=== PATIENT | female | born 1935 | race Hispanic/Latino ===

== ENCOUNTER → 2017-12-27 | Day surgery (SDC) | payer MEDICARE ==
[2017-12-26 12:20] LABS: BASOPHILS % 0.2 % (0.0-1.0); EOSINOPHILS # (AUTO) 0.3 (0.0-0.4); EOSINOPHILS % 2.4 % (0.0-6.0); HEMATOCRIT 32.9 % (34.2-44.1); HEMOGLOBIN 10.4 g/dL (12.0-16.0); LYMPHOCYTES # (AUTO) 4.3 (1.0-3.2); LYMPHOCYTES % 40.5 % (18.0-39.1); MEAN CORPUSCULAR HEMOGLOBIN 27.8 pg (28-32); MEAN CORPUSCULAR HGB CONC 31.6 g/dL (31-35); MONOCYTES # (AUTO) 0.7 (0.2-0.8); MONOCYTES % 6.3 % (4.4-11.3); NEUTROPHILS # (AUTO) 5.4 (2.1-6.9); NEUTROPHILS % 50.3 % (38.7-80.0); PLATELET COUNT 202 x10e3/uL (140-360); RED BLOOD COUNT 3.74 x10e6/uL (3.6-5.1); RED CELL DISTRIBUTION WIDTH 17.2 % (11.7-14.4)
[2017-12-26 12:34] LABS: ANION GAP 12.5 mmol/L (8-16); BLOOD UREA NITROGEN 14 mg/dL (7-26); BUN/CREATININE RATIO 21 (6-25); CALCIUM 9.1 mg/dL (8.4-10.2); CARBON DIOXIDE 27 mmol/L (22-29); CHLORIDE 107 mmol/L (98-107); CREATININE, SERUM 0.67 mg/dL (0.57-1.11); EST GLOMERULAR FILTRATION RATE > 60 ML/MIN (60-); GLUCOSE 93 mg/dL (74-118); POTASSIUM 4.5 mmol/L (3.5-5.1); SODIUM 142 mmol/L (136-145)
--- NOTE | 2017-12-26 12:56 | Diagnostic Imaging Report ---
PROCEDURE: Frontal and lateral views of the chest. COMPARISON: Chest radiograph 11/07/2017 INDICATIONS: PRE OPERATIVE CHEST X-RAY FOR VENOUS ACCESS PORT FINDINGS: Lines/tubes: None. Lungs: The lungs are well inflated. Chronic appearing interstitial changes. There is no evidence of pneumonia or pulmonary edema. Pleura: There is no pleural effusion or pneumothorax. Heart and mediastinum: The heart and the mediastinum are normal. Bones: No acute bony abnormality. IMPRESSION: No acute cardiopulmonary disease. Dictated by: Drake Veras M.D. on 12/26/2017 at 13:06 Electronically approved by: Drake Veras M.D. on 12/26/2017 at 13:06
[~2017-12-27] MED LIST: AMLODIPINE BESYL5 MG PO; BUPIVACAINE HCL 0.5% INJ 30 ML VIAL INJ ONE; EPHEDRINE SULFATE INJ 50 MG/10 ML SYR ONE; FENTANYL CITRATE/PF 100MCG/2 ML INJ ONE; HEPARIN SOD (PORCINE) 5,000 UNIT/ML VIAL ONE; LIDOCAINE HCL 2% LOCAL INJ 5 ML SDV VIAL INJ ONE; LOSARTAN POTASS25 MG PO; LUMIGAN2.5 M1 OP; MORPHINE SULFATE 2 MG/ML SYR ONE; PHENYLEPHRINE HCL 1% 10 MG/ML VIAL ONE; PROPOFOL IV EMULSION 10 MG/ML 20 ML VIAL ONE; SEVOFLURANE INHAL SOLN 250 ML PEN BTL ONE; SODIUM CHLORIDE 0.9% 500ML 500 ML ONE
--- OUTSIDE RECORDS SUMMARY | 2017-12-27 06:36 | XMS REPORT ---
Author Author [facility] Address Unknown Phone Unavailable Care Team Providers [employer] Name Role Phone JAYDEN BREAUX Unavailable Unavailable Problems This patient has no known problems. Allergies, Adverse Reactions, Alerts This patient has no known allergies or adverse reactions. Medications This patient has no known medications. Results Test Description Test Time Test Comments Text Results Atomic Results Result Comments CHEST 2 VIEWS [place] [id number] [place], [place] [address] Patient Name: TWAN HAWLEY MR #: [id number] : 1935 Age/Sex: 82/F Req #: [id number] Adm Physician: Ordered by: JAYDEN BREAUX MD Report #: [id number] Location: OR Room/Bed: Procedure: [id number] DX/CHEST 2 VIEWS Exam Date: 12/26/17 Exam Time : 1230 REPORT STATUS: Signed PROCEDURE: Frontal and lateral views of the chest. COMPARISON: Chest radiograph 11/07/2017 INDICATIONS: PRE OPERATIVE CHEST X-RAY FOR VENOUS ACCESS PORT FINDINGS: Lines/ tubes: None. Lungs: The lungs are well inflated. Chronic appearing interstitial changes. There is no evidence of pneumonia or pulmonary edema. Pleura: There is no pleural effusion or pneumothorax. Heart and mediastinum: The heart and the mediastinum are normal. Bones: No acute bony abnormality. IMPRESSION: No acute cardiopulmonary disease. Dictated by: Drake Gannon M.D. on 12/26/2017 at 13:06 Electronically approved by: Drake Gannon M.D. on 12/26/2017 at 13:06 Dictated By: DRAKE GANNON MD 1306 Transcribed By: VIRAJ on 12/26/17 1306 COPY TO: JAYDEN BREAUX MD CHEST SINGLE (PORTABLE) [place] [address] Patient Name: TWAN HAWLEY MR #: [id number] : 1935 Age/Sex: 82/F Req #: [id number] Adm Physician: JAYDEN BREAUX MD Ordered by: JAYDEN BREAUX MD Report #: [id number] Location: ICU Room/Bed: [place] [address] Procedure: [id number] DX/CHEST SINGLE (PORTABLE) Exam Date: 11/07/17 Exam Time: 1620 REPORT STATUS: Signed PROCEDURE: A single AP view of the chest. COMPARISON: Chest radiograph/10/2017 INDICATIONS: FEVER TODAY FINDINGS: Lines/tubes: Right internal jugular central venous catheter tip overlies the lower superior vena cava. NG tube tip projects over the gastric body, and side hole overlies the GE junction. Lungs: Stable biapical pleuroparenchymal scarring, left greater than right. Mild retrocardiac atelectasis. There is no evidence of pneumonia or pulmonary edema. Pleura: There is no pleural effusion or pneumothorax. Heart and mediastinum: The heart and the mediastinum are unremarkable. Bones: No acute bony abnormality. Upper abdomen: Decreased small amount of free air under the diaphragm, likely post-operative given the midline skin mona suggesting laparotomy. IMPRESSION: 1. Lines and tubes as above. 2. No acute cardiopulmonary disease. 3. Decreased likely post-operative pneumoperitoneum. Dictated by: Drake Gannon M.D. on 2016 at 16:59 Electronically approved by: Drake Gannon M.D. on 2016 at 16:59 Dictated By: DRAKE GANNON MD 58 Transcribed By: VIRAJ on 11/07/171658 COPY TO: JAYDEN BREAUX MD CHEST SINGLE (PORTABLE) [place] [address] Patient Name: TWAN HAWLEY MR #: [id number] : 1935 Age/Sex: 82/F Req #: [id number] Adm Physician: Ordered by: DENISE TEMPLE MD Report #: [id number] Location: OR Room/Bed: Procedure: [id number] DX/CHEST SINGLE (PORTABLE) Exam Date: 11/05/17 Exam Time: 1510 REPORT STATUS: Signed PROCEDURE: A single AP view of the chest. COMPARISON: 11/04/17 INDICATIONS: CENTRAL LINE PLACEMENT AND RULE OUT PNEUMOTHORAX FINDINGS: Lines/ tubes: Right internal jugular central line in place with tip overlying inferior SVC. Nasogastric tube in place with side port slightly above the gastroesophageal junction. Lungs: The lungs are well inflated. Mild central vascular congestion. Biapical scarring. Pleura: There is no significant pleural effusion or pneumothorax. Heart and mediastinum: The heart and the mediastinum are unremarkable. Bones: No acute bony abnormality. IMPRESSION: Right internal jugular central line in place with tip overlying inferior SVC. No visible pneumothorax. Recommend advancement of nasogastric tube. Dictated by: Claus Ruiz M.D. on 11/05/2017 at 15:53 Electronically approved by: Claus Ruiz M.D. on 11/05/2017 at 15:53 Dictated By: CLAUS RUIZ MD 52 Transcribed By: VIRAJ on 11/05/171552 COPY TO: DENISE TEMPLE MD CHEST 2 VIEWS [place] [address] Patient Name: TWAN HAWLEY MR #: [id number] : 1935 Age/Sex: 82/F Req #: [id number] Adm Physician: Ordered by: JAYDEN BREAUX MD Report #: [id number] Location: OR Room/Bed: Procedure: [id number] DX/CHEST 2 VIEWS Exam Date: 11/04/17 Exam Time : 0840 REPORT STATUS: Signed PROCEDURE: Frontal and lateral views of the chest. COMPARISON: None. INDICATIONS: PRE OPERATIVE CHEST X- RAY FOR STOMACH SURGERY FINDINGS: Lines/tubes: None. Lungs: No focal consolidation. No parenchymal mass. Pleura: There is no pleural effusion or pneumothorax. Biapical pleural thickening is present, left greater than right. Heart and mediastinum: The heart and the mediastinum are normal. Atherosclerotic calcifications of the thoracic aorta. Bones : No acute bony abnormality. Degenerative changes of the thoracic spine. IMPRESSION: No acute radiographic abnormality. Dictated by: Benjy Varela M.D. on 11/04/2017 at 11:02 Electronically approved by: Benjy Varela M.D. on 11/04/2017 at 11:02 Dictated By: BENJY VARELA MD 01 Transcribed By: VIRAJ on 11/04/171101 COPY TO: JAYDEN BREAUX MD
--- NOTE | 2017-12-27 16:14 | Operative Report ---
DATE OF PROCEDURE: December 27, 2017 PREOPERATIVE DIAGNOSIS: Gastric lymphoma, needing IV access for chemotherapy. POSTOPERATIVE DIAGNOSIS: Gastric lymphoma, needing IV access for chemotherapy. OPERATION PERFORMED: Placement of right subclavian venous access port under C-arm guidance. ANESTHESIA: General. COMPLICATIONS: None. ESTIMATED BLOOD LOSS: Minimal. DESCRIPTION OF PROCEDURE: With the patient lying in bed in the Trendelenburg position under good general anesthesia, the right chest and neck were prepped with Betadine solution and draped in the usual manner. Standard right subclavian venipuncture was performed without any difficulty and a guidewire was advanced into central venous position. Using the C-arm, the tip of the guidewire was confirmed to be at the level of the superior vena cava and the right lung was fully expanded. A pocket was then created in the right anterior chest to accept the reservoir and the catheter was threaded to the right subclavian position. The reservoir was anchored to the anterior chest wall using interrupted sutures of 2-0 silk. The catheter was cut to the appropriate length, and the reservoir and catheter were fully heparinized. The peel-away sheath introducer was then placed over the guidewire. The guidewire was removed and the catheter was threaded through the peel-away sheath introducer into central venous position. The peel-away sheath was removed. There was good blood return, and the reservoir and catheter were fully heparinized. Using the C-arm, the tip of the catheter was confirmed to be at the level of the superior vena cava and the right lung was fully expanded. The wounds were then closed in layers. The subcutaneous tissue was approximated with 3-0 and 4-0 Vicryl, and the skin was closed with subcuticular 5-0 Vicryl. Benzoin, Steri-Strips, and dressings were applied. The sponge, lap, and needle count was correct. The patient tolerated the procedure well and returned to the recovery room in stable condition. Job#: [id number] JON
== END | disposition home or self-care (01) ==
LOC: OR 06:35
PROVIDERS: ATTEND Surgery
DX: C85.93 Non-Hodgkin lymphoma, unspecified, intra-abdominal lymph nodes (principal); I10 Essential (primary) hypertension; Z01.810 Encounter for preprocedural cardiovascular examination; Z01.812 Encounter for preprocedural laboratory examination; Z01.818 Encounter for other preprocedural examination; Z85.3 Personal history of malignant neoplasm of breast; Z90.3 Acquired absence of stomach [part of]; Z90.10 Acquired absence of unspecified breast and nipple
CPT/HCPCS: 36415; 36561; 71046; 77001; 80048; 85025; 93005; C1751; J1644; J2001; J2270; J2370; J7040

== ENCOUNTER 2019-10-21 10:50 | Outpatient (RCR) | payer MEDICARE ==
[~2019-10-21 10:50] MED LIST changes: -BUPIVACAINE HCL 0.5% INJ 30 ML VIAL INJ ONE; -EPHEDRINE SULFATE INJ 50 MG/10 ML SYR ONE; -FENTANYL CITRATE/PF 100MCG/2 ML INJ ONE; -HEPARIN SOD (PORCINE) 5,000 UNIT/ML VIAL ONE; +IOPAMIDOL 370 MG/ML 200 ML INFUS..BTL INJ ONE; -LIDOCAINE HCL 2% LOCAL INJ 5 ML SDV VIAL INJ ONE; -MORPHINE SULFATE 2 MG/ML SYR ONE; -PHENYLEPHRINE HCL 1% 10 MG/ML VIAL ONE; -PROPOFOL IV EMULSION 10 MG/ML 20 ML VIAL ONE; -SEVOFLURANE INHAL SOLN 250 ML PEN BTL ONE; -SODIUM CHLORIDE 0.9% 500ML 500 ML ONE; +SODIUM CHLORIDE 0.9% 50ML 50 ML ONE
== END 2019-10-24 ==
LOC: PT 10:50
PROVIDERS: ATTEND Specialist
DX: M25.512 Pain in left shoulder (principal); M75.102 Unspecified rotator cuff tear or rupture of left shoulder, not specified as traumatic; M62.81 Muscle weakness (generalized); M25.612 Stiffness of left shoulder, not elsewhere classified
CPT/HCPCS: 97110 ×3; 97161; Q9967

== ENCOUNTER → 2020-01-18 | Day surgery (SDC) | payer MEDICARE ==
[~2020-01-18] MED LIST changes: +BUPIVACAINE 0.25% 30ML SDV INJ ONE; -IOPAMIDOL 370 MG/ML 200 ML INFUS..BTL INJ ONE; +LIDOCAINE HCL 2% LOCAL INJ 5 ML SDV VIAL INJ ONE; +PROPOFOL IV EMULSION 10 MG/ML 20 ML VIAL ONE; +SEVOFLURANE INHAL SOLN 250 ML PEN BTL ONE; -SODIUM CHLORIDE 0.9% 50ML 50 ML ONE; +vit b12 INJ
[2020-01-18 07:38] LABS: BASOPHILS % 0.2 % (0.0-1.0); EOSINOPHILS # (AUTO) 0.1 (0.0-0.4); EOSINOPHILS % 2.2 % (0.0-6.0); HEMATOCRIT 33.5 % (34.2-44.1); LYMPHOCYTES # (AUTO) 2.1 (1.0-3.2); LYMPHOCYTES % 38.5 % (18.0-39.1); MEAN CORPUSCULAR HEMOGLOBIN 31.3 pg (28-32); MEAN CORPUSCULAR HGB CONC 32.8 g/dL (31-35); MEAN CORPUSCULAR VOLUME 95.2 fL (81-99); MONOCYTES # (AUTO) 0.4 (0.2-0.8); MONOCYTES % 6.9 % (4.4-11.3); NEUTROPHILS # (AUTO) 2.8 (2.1-6.9); PLATELET COUNT 126 x10e3/uL (140-360); RED BLOOD COUNT 3.52 x10e6/uL (3.6-5.1); RED CELL DISTRIBUTION WIDTH 13.7 % (11.7-14.4)
[2020-01-18 07:53] LABS: ANION GAP 11.7 mmol/L (8-16); BLOOD UREA NITROGEN 11 mg/dL (7-26); BUN/CREATININE RATIO 17 (6-25); CARBON DIOXIDE 28 mmol/L (22-29); CHLORIDE 106 mmol/L (98-107); CREATININE, SERUM 0.64 mg/dL (0.57-1.11); EST GLOMERULAR FILTRATION RATE > 60 ML/MIN (60-); GLUCOSE 84 mg/dL (74-118); POTASSIUM 3.7 mmol/L (3.5-5.1); SODIUM 142 mmol/L (136-145)
[2020-01-18 08:07] LABS: PLATELET ESTIMATE MODERATELY DECREASED
--- NOTE | 2020-01-18 08:14 | Diagnostic Imaging Report ---
EXAMINATION: CHEST 2 VIEWS INDICATION: Preop, malfunctioning venous access Port-A-Cath ^PRE OP ^[id number] ^[id number] COMPARISON: None FINDINGS: PA and lateral views TUBES and LINES: MediPort catheter in the SVC. LUNGS: Diffuse hyperinflation. Reticulonodular opacities in the lung peripheries, either secondary to fibrosis, infection, or neoplasm. No infiltrates PLEURA: Left apical pleural thickening. No pleural effusion or pneumothorax. HEART AND MEDIASTINUM: The heart is normal in size. The aorta is tortuous. BONES AND SOFT TISSUES: No focal osseous lesions. Soft tissues are unremarkable. UPPER ABDOMEN: Unremarkable. IMPRESSION: Pulmonary hyperinflation and reticulonodular airspace opacities. MediPort catheter terminates in the SVC. Signed by: Dr. Del Montalvo MD on 01/18/2020 8:12 AM
[2020-01-18 10:39] VITALS: BP 150/71
--- NOTE | 2020-01-18 13:05 | Operative Report ---
DATE OF PROCEDURE: 01/18/2020 SURGEON: Lamont Charles MD PREOPERATIVE DIAGNOSIS: Malfunctioning venous access port. POSTOPERATIVE DIAGNOSIS: Malfunctioning venous access port. OPERATION PERFORMED: Removal of right subclavian venous access port. ANESTHESIA: General. COMPLICATIONS: None. ESTIMATED BLOOD LOSS: Minimal. DESCRIPTION OF PROCEDURE: With the patient lying in bed in the supine position under good general anesthesia, the right chest and neck were prepped with Betadine solution and draped in the usual manner. The area overlying the Port-A-Cath in the right chest was then infiltrated with 0.25% Marcaine. An incision was made, carried down through the subcutaneous tissue and through the capsule of the Port-A-Cath. All 4 silk sutures were identified and removed and the catheter was removed in its entirety without any difficulty. Hemostasis was ascertained. The capsule of the Port-A-Cath was then closed with interrupted sutures of 3-0 Vicryl. The subcutaneous tissue was approximated with 4-0 Vicryl and the skin was closed with subcuticular 5-0 Vicryl. Benzoin, Steri-Strips, and Band-Aids were applied. The sponge, lap, and needle count was correct. The patient tolerated the procedure well and returned to the recovery room in stable condition. Lamont Charles MD JLR/MODL /[id number]
== END | disposition home or self-care (01) ==
LOC: OR 06:25
PROVIDERS: ATTEND Surgery
DX: T82.514A Breakdown (mechanical) of infusion catheter, initial encounter (principal); C16.9 Malignant neoplasm of stomach, unspecified; Z79.899 Other long term (current) drug therapy; Y83.8 Other surgical procedures as the cause of abnormal reaction of the patient, or of later complication, without mention of misadventure at the time of the procedure
CPT/HCPCS: 36415; 36590; 71046; 80048; 85025; 88300; 93005; J2001; J2704

== ENCOUNTER → 2021-01-19 | Day surgery (SDC) | payer MEDICARE, OTHER ==
[2021-01-16 09:40] LABS: BASOPHILS % 0.4 % (0.0-1.0); EOSINOPHILS # (AUTO) 0.1 (0.0-0.4); EOSINOPHILS % 1.7 % (0.0-6.0); HEMATOCRIT 34.6 % (34.2-44.1); HEMOGLOBIN 11.2 g/dL (12.0-16.0); LYMPHOCYTES # (AUTO) 1.9 (1.0-3.2); LYMPHOCYTES % 34.9 % (18.0-39.1); MEAN CORPUSCULAR HGB CONC 32.4 g/dL (31-35); MEAN CORPUSCULAR VOLUME 92.8 fL (81-99); MONOCYTES # (AUTO) 0.4 (0.2-0.8); MONOCYTES % 6.4 % (4.4-11.3); NEUTROPHILS # (AUTO) 3.1 (2.1-6.9); NEUTROPHILS % 56.4 % (38.7-80.0); PLATELET COUNT 103 x10e3/uL (140-360); RED BLOOD COUNT 3.73 x10e6/uL (3.6-5.1); RED CELL DISTRIBUTION WIDTH 13.8 % (11.7-14.4)
[~2021-01-19] MED LIST changes: -BUPIVACAINE 0.25% 30ML SDV INJ ONE; -SEVOFLURANE INHAL SOLN 250 ML PEN BTL ONE; +VITAMIN B-12500 MC3 PO
[2021-01-19 10:25] VITALS: BP 143/49
== END | disposition home or self-care (01) ==
LOC: OR 06:52
PROVIDERS: ATTEND Internal Medicine Gastroenterology
DX: R13.10 Dysphagia, unspecified (principal); Z98.84 Bariatric surgery status; K21.9 Gastro-esophageal reflux disease without esophagitis; Z71.3 Dietary counseling and surveillance; E73.9 Lactose intolerance, unspecified; E11.9 Type 2 diabetes mellitus without complications; I10 Essential (primary) hypertension; R55 Syncope and collapse; I11.0 Hypertensive heart disease with heart failure; I50.9 Heart failure, unspecified; Z01.810 Encounter for preprocedural cardiovascular examination; Z01.812 Encounter for preprocedural laboratory examination; Z20.822 Contact with and (suspected) exposure to COVID-19; Z79.84 Long term (current) use of oral hypoglycemic drugs; Z68.1 Body mass index [BMI] 19.9 or less, adult; Z95.0 Presence of cardiac pacemaker; Z85.3 Personal history of malignant neoplasm of breast; Z87.891 Personal history of nicotine dependence
CPT/HCPCS: 36415; 43235; 85025; 93005; J2001; J2704; U0002; 43239